=== PATIENT | male | born 1970 | race Caucasian/White ===

== ENCOUNTER → 2024-01-20 | Outpatient (CLI) | payer BC, SELFPAY ==
[2024-01-20 17:13] LABS: Anion Gap 6 (7-16); BUN/Creatinine Ratio 14 Ratio (12-20); Blood Urea Nitrogen 15 mg/dL (9-23); Calcium 10.2 mg/dL (8.3-10.6); Carbon Dioxide 25.9 mMol/L (20.0-31.0); Chloride 106 mMol/L (98-107); Creatinine (Component) 1.1 mg/dL (0.6-1.3); Glucose 144 mg/dL (74-106); Osmolality,Calculated 279 (275-295); Potassium 5.1 mMol/L (3.4-5.1); Sodium 138 mMol/L (136-145); eGFR > 60 See Note
== END | disposition home or self-care (01) ==
LOC: COPL 15:54
PROVIDERS: PCP Internal Medicine; Referring Provider Internal Medicine; Visit Provider Internal Medicine
DX: E87.5 Hyperkalemia (principal); I10 Essential (primary) hypertension
CPT/HCPCS: 36415; 80048

== ENCOUNTER 2024-07-11 22:24 | Emergency (ER) | payer BC, SELFPAY ==
[2024-07-11 22:25] VITALS: BMI 28.7
[2024-07-11 22:35] VITALS: BP 134/81; PULSE 134; RESP 18; TEMP 36.7; O2SAT 97
--- NOTE | 2024-07-11 23:12 | EDNOTE_ITS ---
ED General RME/HPI General Chief complaint: Animal Bite Stated complaint: DOG BITE TO TESTICLE Time Seen by Provider: 07/11/24 22:43 Arrival date/time: 07/11/24 22:24 RME / HPI RME / HPI narrative: This patient 54-year-old male with past medical history of hypertension, hyperlipidemia presented to the ED on 07/11/24 due to dog bite on the scrotum and right leg abrasion. He reported to have a pain 1.5/10. Denied any other symptoms including fever chills, shortness of breath, chest pain, abdominal discomfort. Patient did not urinate since then. He has been having bleeding from the scrotal skin. He did not recall having tetanus shot within 5 years. He does take his blood pressure medications however did not recall the name of the medications. Vitals were stable. Under aseptic measures, we will place Ethilon sutures spaced up after getting lidocaine around the tissue to numb the area and let pus come out. We will give Augmentin 875 1 tablet twice daily for 2 weeks. Tetanus shot given x 1. PMH: As above PSH: Appendectomy 20 years ago SH: Drinks socially. Denies smoking. No history of illicit drug use. Allergies: [place], Vicodin causes hallucination Home medications: Does not recall the name MD complaint: laceration on scrotum due to dog bite Onset (ago): day(s) Related Data Previous Rx's ?Medication ?Instructions ?Recorded amoxicillin 875 mg-potassium 1 tab PO BID 2 weeks #28 tabs 07/11/24 clavulanate 125 mg tablet ibuprofen 800 mg tablet 800 mg PO Q8H PRN pain #30 t abs 07/12/24 Allergies Allergy/AdvReac Type Severity Reaction Status Date / Time acetaminophen Allergy Severe STRANGE Verified 07/11/24 22:25 FEELING hydrocodone Allergy Severe STRANGE Verified 07/11/24 22:25 FEELING WALNUTS Allergy Severe FOOD / Uncoded 07/11/24 22:25 RASH/HIVES Review of Systems Review of Systems Systems Reviewed: All systems reviewed, normal except as documented Past Medical History Past Medical History CARDIAC: Positive Hypercholesterolemia and Hypertension ED Exam Narrative Physical exam: GENERAL APPEARANCE: AxOx4, generally well-appearing male in mild distress. HEENT: NC, AT. MMM. EOMI, clear conjunctiva, oropharynx clear. NECK: Supple without lymphadenopathy. No stiffness or restricted ROM. HEART: Sinus tacy with regular rhythm, normal S1/S2, no m/r/g LUNGS: CTAB, moving air well. No crackles or wheezes are heard. ABDOMEN: Soft, nontender, nondistended with good bowel sounds heard. BACK: No CVAT, no obvious deformity. EXTREMITIES: Without cyanosis, clubbing or edema. NEUROLOGICAL: Grossly nonfocal. Alert and oriented, moving all 4 extremities. CN not formally tested but appear grossly intact. Observed to ambulate with normal gait. exam: normal testicular lie; Absent urethral discharge. scrotal swelling with laceration on scrotum Skin: Warm and dry without any rash. Psych: Appropriate mood and affect Course Quality Measures none Orders Category Date Time Status Set Up Suture Tray STAT Care 07/11/24 23:46 Active Amoxicillin/Pot Clav 875 [Augmentin 875] Med 07/11/24 23:43 Discontinued 1 tab PO X1 ONE Lidocaine 1% 20 ml [Xylocaine 1% 20 ML] Med 07/12/24 00:01 Discontinued 20 ml INFL X1 ONE TET,DIP/PERT AC (Adult)-Tdap [Boostrix Adult (Tdap) Med 07/11/24 23:23 Discontinued Vacc] 0.5 ml IMI .ONCE ONE Vital Signs Vital signs: Vital Signs Temperature 98.1 F 07/11/24 22:35 Pulse Rate 134 H 07/11/24 22:35 Respiratory Rate 18 07/11/24 22:35 Blood Pressure 134/81 H 07/11/24 22:35 Pulse Oximetry (%) 97 07/11/24 22:35 Oxygen Delivery Method Room Air 07/11/24 22:35 Procedures -ED Procedure Comment Under aseptic measures, Skin was prepared and drapped. we placed Ethilon sutures spaced up after getting lidocaine around the tissue to numb the area and let pus come out. Discharge Plan Plan Patient Disposition: HOME (Self Care) Prescriptions/Referrals Prescriptions/Med Rec: New amoxicillin-pot clavulanate 875-125 mg tablet 1 tab PO BID 14 Days Qty: 28 0RF ibuprofen 800 mg tablet 800 mg PO Q8H PRN (Reason: pain) Qty: 30 0RF Problem List Clinical Impression: Dog bite, Laceration of scrotum Patient/Caregiver Discharge Instructions Other Activity Instructions:: Please return to the emergency department for any worsening or any further medical problems and we will help you. Otherwise you should follow-up with your primary care doctor within the next several days. Take Augmentin 875 mg twice a day for 2 weeks Take Ibuprofen 800 mg 1 tab q8h as needed for pain Education Materials: Animal Bites and Scratches, ED Animal Bite (General), ED Wound Check (No Infection) Print Language: Vincentian Stand Alone Forms: Rosa Award Info., Patient Portal Info Letter MDM Medication Administration(s) Medication Administration History Discontinued Medications Amoxicillin/Clavulanate Potassium (Amoxicillin/Pot Clav 875 Tablet) 1 tab PO X1 ONE Stop: 07/11/24 23:44 Last Admin: 07/12/24 00:39 Dose: 1 tab Documented By: EE Diphtheria/Tetanus/Acell Pertussis (Diphth,Pertuss(Acell),Tet Vac 0.5 Ml Syr- Adult) 0.5 ml IMi .ONCE ONE Stop: 07/11/24 23:24 Last Admin: 07/11/24 23:42 Dose: 0.5 ml Documented By: EF Lidocaine HCl (Lidocaine Hcl 1% 20 Ml Vial) 20 ml INFL X1 ONE Stop: 07/12/24 00:02 Last Admin: 07/12/24 00:39 Dose: 20 ml Documented By: EE
[2024-07-11] MEDS: DIPHTH,PERTUSS(ACELL),TET VAC 0.5 ML SYR- ADULT IMi (23:42)
[2024-07-12] MEDS: LIDOCAINE HCL 1% 20 ML VIAL INFL (00:39)
[2024-07-12] MEDS: AMOXICILLIN/POT CLAV 875 TABLET 1 TAB PO (00:39)
[2024-07-12 01:41] VITALS: BP 128/74; PULSE 79; RESP 16; O2SAT 96
== END 2024-07-12 01:42 | disposition home or self-care (01) ==
PROVIDERS: Emergency Provider Emergency Medicine; PCP Internal Medicine
DX: S31.31XA Laceration without foreign body of scrotum and testes, initial encounter (principal); W54.0XXA Bitten by dog, initial encounter; Z23 Encounter for immunization; E78.5 Hyperlipidemia, unspecified; I10 Essential (primary) hypertension
CPT/HCPCS: 12001; 90471; 90715; 99283; J3490; A9270

== ENCOUNTER → 2024-08-12 | Outpatient (CLI) | payer BC, SELFPAY ==
[2024-08-12 09:17] LABS: Basophils # (Auto) 0.1 Thou/mm3 (0.0-0.2); Basophils % (Auto) 1 % (0-2.5); Eosinophils # (Auto) 0.3 Thou/mm3 (0.0-0.5); Eosinophils % (Auto) 3 % (0-10); Hematocrit 44.2 % (41.0-53.0); Hemoglobin 14.6 g/dL (13.5-16.0); Immature Granulocytes % (Auto) 0 % (0-0); Immature Granulocytes Auto 0.02 Thou/mm3 (0.00-0.00); Lymphocytes # (Auto) 2.3 Thou/mm3 (1.0-4.8); Lymphocytes % (Auto) 24 % (10-50); Mean Corpuscular Hemoglobin 28.2 pg (25.0-35.0); Mean Corpuscular Volume 85 fL (80-100); Monocytes # (Auto) 0.7 Thou/mm3 (0.0-0.8); Monocytes % (Auto) 7 % (0-12); Neutrophils # (Auto) 6.4 Thou/mm3 (1.8-7.7); Neutrophils % (Auto) 65 % (37-80); Nucleated Red Blood Cell % 0 /100 WBC (0); Platelet Count 243 Thou/mm3 (140-440); RDW Standard Deviation 40.4 fL (35.1-43.9); Red Blood Count 5.18 Miln/mm3 (4.50-5.90); White Blood Count 9.8 Thou/mm3 (3.8-10.6)
[2024-08-12 09:25] LABS: Glucose Estimated Average 111 mg/dL (80-131); Hemoglobin A1C 5.5 % Hgb (4.8-6.0)
[2024-08-12 09:42] LABS: Alanine Aminotransferase 54 U/L (10-49); Albumin, Serum 4.5 gm/dL (3.5-5.0); Albumin/Globulin Ratio 2.5 (1.2-2.2); Alkaline Phosphatase 102 U/L (46-116); Anion Gap 11 (7-16); Aspartate Amino Transferase 26 U/L (0-34); BUN/Creatinine Ratio 13 Ratio (12-20); Bilirubin,Total 0.6 mg/dL (0.3-1.2); Blood Urea Nitrogen 14 mg/dL (9-23); Calcium 9.1 mg/dL (8.3-10.6); Calcium (Corrected) 9.1 mg/dL (8.5-10.1); Carbon Dioxide 26.1 mMol/L (20.0-31.0); Cardiac Risk Estimate 3.3 RATIO (4.0-6.7); Chloride 108 mMol/L (98-107); Cholesterol 143 mg/dL (132-200); Creatinine (Component) 1.1 mg/dL (0.6-1.3); Globulin 1.8 gm/dL (2.3-3.5); Glucose 93 mg/dL (74-106); HDL Cholesterol 44 mg/dL (40-60); LDL Cholesterol,Calculated 80 mg/dL (0-130); Osmolality,Calculated 289 (275-295); Sodium 145 mMol/L (136-145); Total Protein 6.3 gm/dL (5.7-8.2); Triglycerides 95 mg/dL (30-150); eGFR > 60 See Note
== END | disposition home or self-care (01) ==
LOC: COPL 07:44
PROVIDERS: PCP Internal Medicine; Referring Provider Internal Medicine; Visit Provider Internal Medicine
DX: I10 Essential (primary) hypertension (principal); E78.5 Hyperlipidemia, unspecified
CPT/HCPCS: 36415; 80053; 80061; 83036; 85025